=== PATIENT | female | born 1985 | race Caucasian/White ===

== ENCOUNTER 2020-01-28 12:47 | Outpatient (CLI) | payer OTHER, SELFPAY ==
--- NOTE | ~2020-01-28 | XR_ITS ---
XR lumbar spine min 4V DATE: 01/28/2020 14:59 INDICATION: Lumbar spinal fusion. Low back pain. TECHNIQUE: AP standing view. Flexion and extension and neutral standing lateral views. COMPARISON: None FINDINGS: There is slight dextroscoliosis of the lumbar spine. There is a transitional fifth lumbar vertebrae. There is severe degenerative disc disease at L4-5. The remaining lumbar interspaces are well preserve d. No fracture or bone destruction is evident. The lumbar pedicles are intact. No spondylolisthesis or i nstability on flexion or extension. The sacroiliac joints appear normal. IUD is noted overlying the mid pelvis. IMPRESSION: Slight dextroscoliosis of the lumbar spine Transitional fifth lumbar vertebra Moderately severe degenerative disc disease at L4-5 Reviewed, dictated and finalized at location A.
--- NOTE | ~2020-01-28 | MR_ITS ---
EXAMINATION: MR cervical spine wo con DATE: 01/28/2020 14:51 INDICATION: Cervical radiculopathy. TECHNIQUE: Magnetic resonance imaging (MRI) of the cervical spine was performed without intravenous c ontrast. Sequences included sagittal T2-weighted FSE, sagittal STIR FSE, sagittal T1-weighted FSE, ax ial MERGE, and axial T2-weighted FSE. COMPARISON: None FINDINGS: There is kyphosis of cervical spine. Vertebral body heights are normal. Intervertebral disc heights are normal. The spinal cord signal intensity is normal. The following disc levels are specif ically discussed: C2-C3: The disc does not extend beyond the endplate margin. There is no uncovertebral joint osteoarth ritis. There is mild bilateral facet joint osteoarthritis. There is no neural foraminal stenosis. The re is no central canal stenosis. C3-C4: There is a central protrusion. There is mild bilateral uncovertebral joint osteoarthritis. The re is mild bilateral facet joint osteoarthritis. There is mild left neural foraminal stenosis. There is mild central canal stenosis. C4-C5: The disc does not extend beyond the endplate margin. There is no uncovertebral joint osteoarth ritis. There is no facet joint osteoarthritis. There is no neural foraminal stenosis. There is no alix tral canal stenosis. C5-C6: The disc is bulging. There is moderate bilateral uncovertebral joint osteoarthritis. There is mild bilateral facet joint osteoarthritis. There is mild bilateral neural foraminal stenosis. There i s mild central canal stenosis with ventral indentation of spinal cord. C6-C7: There is a central extrusion. There is no uncovertebral joint osteoarthritis. There is no face t joint osteoarthritis. There is no neural foraminal stenosis. There is mild central canal stenosis. C7-T1: The disc does not extend beyond the endplate margin. There is mild left uncovertebral joint os teoarthritis. There is mild bilateral facet joint osteoarthritis. There is no neural foraminal stenos is. There is no central canal stenosis. IMPRESSION: 1. Mild cervical spondylosis. Reviewed, dictated and finalized at location A.
== END 2020-01-28 12:48 | disposition home or self-care (01) ==
LOC: ANHIMG 13:18
DX: M47.22 Other spondylosis with radiculopathy, cervical region (principal); Z98.1 Arthrodesis status; M51.36 Other intervertebral disc degeneration, lumbar region
CPT/HCPCS: 72110; 72141

== ENCOUNTER 2020-04-14 11:18 | Outpatient (CLI) | payer OTHER, SELFPAY ==
--- NOTE | ~2020-04-14 | MR_ITS ---
EXAMINATION: MR lumbar spine wo/w con DATE: 04/14/2020 12:52 INDICATION: Lumbar neuropathy. Low back pain. TECHNIQUE: Magnetic resonance imaging (MRI) of the lumbar spine was performed without and with 20 mL MultiHance intravenous contrast. Sequences included sagittal T2-weighted FSE, sagittal STIR FSE, and sagittal and axial T1-weighted FSE. Postcontrast sequences included axial T2-weighted FSE and axial a nd sagittal T1-weighted FS FSE. COMPARISON: Lumbar spine MRI 03/31/2019 FINDINGS: Bone alignment is normal. Vertebral body heights are normal. There is a hemangioma in L2 ve rtebral body. There is severely decreased disc height at L4-L5 and mildly decreased disc height at L5 -S1. The distal spinal cord signal intensity is normal. The conus medullaris is at L1. The following disc levels are specifically discussed: L1-L2: The disc does not extend beyond the endplate margin. There is mild bilateral facet joint osteo arthritis. There is no neural foraminal stenosis. There is no central canal stenosis. L2-L3: The disc does not extend beyond the endplate margin. There is mild bilateral facet joint osteo arthritis. There is no neural foraminal stenosis. There is no central canal stenosis. L3-L4: The disc does not extend beyond the endplate margin. There is mild bilateral facet joint osteo arthritis. There is no neural foraminal stenosis. There is no central canal stenosis. L4-L5: The disc is bulging with superimposed central extrusion. There is mild bilateral facet joint o steoarthritis. There is moderate bilateral neural foraminal stenosis. There is mild central canal shayne nosis with posterior decompression. L5-S1: There is an extrusion involving right subarticular and foraminal zones with mass effect on rig ht S1 nerve root. There is severe right and moderate left facet joint osteoarthritis. There is modera te right neural foraminal stenosis. There is mild central canal stenosis. IMPRESSION: 1. Severe lower lumbar spondylosis, stable from 03/31/2019. Reviewed, dictated and finalized at location B.
[2020-04-14 12:08] LABS: Estimated Glomerular Filt Rate > 60
== END 2020-04-14 11:19 | disposition home or self-care (01) ==
LOC: ANHIMG 11:31
DX: M47.816 Spondylosis without myelopathy or radiculopathy, lumbar region (principal)
CPT/HCPCS: 72158; A9577

== ENCOUNTER 2024-08-05 14:11 | Outpatient (CLI) | payer OTHER, SELFPAY ==
--- NOTE | ~2024-08-05 | XR_ITS ---
EXAMINATION: XR lumbar spine min 4V DATE: 08/05/2024 15:14 INDICATION: Low back pain. TECHNIQUE: 5 views of lumbar spine were obtained. COMPARISON: Lumbar spine radiograph 01/28/2020 FINDINGS: There is 13 degrees levoscoliosis of lumbar spine. Vertebral body heights are normal. There is severely decreased disc height at L4-L5 and mildly decreased disc height at L5-S1. There is multi level facet joint osteoarthritis, severe in lower lumbar spine. IMPRESSION: 1. Severe lower lumbar spondylosis. 2. Lumbar levoscoliosis. Reviewed, dictated and finalized at location A. ETRICS HEAD
--- NOTE | ~2024-08-05 | XR_ITS ---
EXAMINATION: XR tibia fibula RT 2V DATE: 08/05/2024 14:38 INDICATION: Lower leg pain. TECHNIQUE: 2 views of right tibia and fibula were obtained. COMPARISON: None. FINDINGS: Alignment is normal. No fracture. Joint spaces are normal. No knee joint effusion. IMPRESSION: 1. Normal right tibia and fibula. Reviewed, dictated and finalized at location A. DING WHEEL FACER
--- NOTE | ~2024-08-05 | XR_ITS ---
EXAMINATION: XR tibia fibula LT 2V DATE: 08/05/2024 14:38 INDICATION: Left lower leg pain. TECHNIQUE: 2 views of left tibia and fibula were obtained. COMPARISON: None. FINDINGS: Alignment is normal. No fracture. Joint spaces are normal. No knee joint effusion. IMPRESSION: 1. Normal left tibia and fibula. Reviewed, dictated and finalized at location A. ON OFFICER
== END 2024-08-05 14:12 | disposition home or self-care (01) ==
PROVIDERS: PCP Family Medicine; Visit Provider Family Medicine
DX: M79.605 Pain in left leg (principal); Z98.1 Arthrodesis status; Z98.890 Other specified postprocedural states; M47.896 Other spondylosis, lumbar region
CPT/HCPCS: 72110; 73590

== ENCOUNTER 2024-08-19 07:52 | Outpatient (CLI) | payer OTHER, SELFPAY ==
--- NOTE | ~2024-08-19 | US_ITS ---
EXAMINATION: US venous doppler [facility] DATE: 08/19/2024 08:37 INDICATION: Bilateral lower limb pain and swelling TECHNIQUE: Grayscale ultrasound images without and with compression and Doppler ultrasound images of the bilateral lower extremity veins were obtained. COMPARISON: None. FINDINGS: The visualized portions of right common femoral vein, profunda (deep) femoral vein, femoral vein, pop liteal vein, posterior tibial veins, peroneal veins, gastrocnemius vein and greater saphenous vein ou tflow are patent. The visualized portions of left common femoral vein, profunda femoral vein, femoral vein, popliteal v ein, posterior tibial veins, peroneal veins, gastrocnemius vein and greater saphenous vein outflow ar e patent. IMPRESSION: 1. No deep venous thrombosis in either lower limb. Reviewed, dictated and finalized at location B. 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
== END 2024-08-19 07:53 | disposition home or self-care (01) ==
PROVIDERS: PCP Family Medicine; Visit Provider Family Medicine
DX: M79.605 Pain in left leg (principal)
CPT/HCPCS: 93970

== ENCOUNTER 2024-09-05 18:42 | Emergency (ER) | payer OTHER, SELFPAY ==
[2024-09-05 18:52] VITALS: BP 142/93; PULSE 129; RESP 18; TEMP 37.1; O2SAT 100
--- NOTE | 2024-09-05 19:13 | ED_ITS ---
HPI - URI/Sore Throat General Chief Complaint: Upper Respiratory Infection Stated Complaint: flu like symptoms Time Seen by Provider: 09/05/24 18:46 Source: patient Mode of arrival: ambulatory Limitations: no limitations History of Present Illness HPI Narrative: Patient is a 38-year-old female presents with 3 days of body aches, headache, fever, chills. Also reports intermittent productive cough. Denies any con gestion, sore throat, ear pain, nausea, vomiting, diarrhea. Patient has taken 1 dose of Aleve Related Data Home Medications ?Medication ?Instructions ?Recorded ?Confirmed ?Last Taken ?Type lisinopril 10 mg tablet 10 mg PO DAILY 06/27/22 Unknown History Allergies Allergy/AdvReac Type Severity Reaction Status Date / Time No Known Allergies Allergy Verified 09/05/24 19:05 Review of Systems Review of Systems: All systems reviewed & are unremarkable except as noted in HPI and below Constitutional: Constitutional: Reports body ache(s), Reports chills, Denies fatigue, Reports fever(s), Reports headache(s), Denies malaise and Denies weakness Eyes: Eyes: Denies blurry vision, Denies itchy eyes and Denies loss of vision ENT: Denies otalgia, Denies headache(s), Denies nasal congestion, Denies sinus pain and Denies sore throat Cardiovascular: Cardiovascular: Denies chest pain, Denies irregular heart rhythm and Denies dyspnea Respiratory: Respiratory: Reports cough and Denies dyspnea Gastrointestinal: Gastrointestinal: Denies abdominal pain, Denies diarrhea, Denies nausea and Denies vomiting Musculoskeletal: Musculoskeletal: Denies back pain, Reports myalgias and Denies arthralgias Integumentary/Breasts: Skin/Breast: Denies pruritus and Denies rash Neurologic: Reports headache(s), Denies loss of vision and Denies weakness Psychiatric: Psychiatric: Reports no additional psychiatric complaints Endocrine: Endocrine: Denies fatigue Allergic/Immunologic: Allergic/Immunologic: Denies itchy eyes PMFSH Past Medical History Medical History Encounter for IUD removal Hypertension Migraines Depression Arthritis Anxiety Surgical History Surgical History H/O laminectomy S/P cervical disc replacement History of carpal tunnel surgery Family History Family History Mother Rheumatoid arthritis Other Hypertension Social History Social History Smoking status: Never smoker Alcohol intake: current Comments At time of signature, agree with nursing past medical, surgical, social and family history. There is no relevant family history pertinent to the presenting complaint. Exam Const: General: cooperative, healthy appearing, comfortable, no acute distress and well nourished Nutritional Appearance: well nourished Orienta tion/consciousness: patient oriented x3 Limitations: no limitations HENMT: Head: normal to inspection, normocephalic and atraumatic Ears: hearing grossly normal bilaterally, external ears normal, TM's normal bilaterally, EAC's normal and no periauricular adenopathy Face/Nose/Sinus: Normal external nose present, Abnormal mucous membranes and turbinates present erythematous bilateral and diffuse, normal facial exam, sinuses nontender and face symmetric Face and sinus: normal facial exam, sinuses nontender and face symmetric Mouth: Yes Normal oral and palatal mucosa present, Yes lip normal, Yes tongue normal, Yes Normal salivary glands and ducts present, Yes oropharynx normal and Yes moist mucous membranes Teeth and gingiva: dentition normal Throat: posterior oropharynx normal, tonsils normal and uvula midline Eyes: General: appearance normal, both eyes and all related structures Alignment and Position: alignment normal and position normal Periorbital: periorbital findings normal Eyelids: eyelids normal Pupils: Equal, round and reactive pupils present Neck: Neck: normal visual inspection, full ROM, no lymphadenopathy and supple Chest: Chest palpation & inspection: normal inspection of the chest and normal palpation of entire chest wall Resp: Effort & Inspection: normal respiratory effort and able to speak in complete sentences Auscultation: clear to auscultation bilaterally, no crackles, no rales, no rhonchi and no wheezes Cardio: Rate: tachycardic Rhythm: regular rhythm Heart sounds: S1 normal heart sound present and S2 normal heart sound present GI: Inspection: normal to inspection Skin: General skin exam: normal color and no rashes or lesions noted Neuro: General: patient oriented x3 and moves all extremities Cranial nerves: Yes Equal, round and reactive pupils present Speech: normal speech Gait exam (Neuro): Normal gait present Extrem: General: normal to inspection, full ROM and no edema Psych: Appearance: grossly normal and well kempt Mental Status: mental status grossly normal Speech and movement: Normal speech and movement present Affect: normal affect Attitude: cooperative Thought process: Normal thought process present Course Course Emergency Course: Discharge instructions reviewed with patient, as well as provided in writing per nursing staff. The instructions also include specific and strict return/GO TO THE ER as well as f/u information. All questions have been answered, and the patient deny any further questions with discharge and discharge plan. Portions of this record may have been created with voice recognition software Level of Care: Express Care Visit Vital Signs Vital signs: Vital Signs Temperature 37.1 C 09/05/24 18:52 Pulse Rate 129 H 09/05/24 18:52 Respiratory Rate 18 09/05/24 18:52 Blood Pressure 142/93 H 09/05/24 18:52 Pulse Oximetry 100 09/05/24 18:52 Oxygen Delivery Room Air 09/05/24 18:52 Temperature 37.1 C 09/05/24 18:52 Pulse Rate 129 H 09/05/24 18:52 Respiratory Rate 18 09/05/24 18:52 Blood Pressure 142/93 H 09/05/24 18:52 Pulse Oximetry 100 09/05/24 18:52 Oxygen Delivery Room Air 09/05/24 18:52 Repeat HR is 110 Reviewed MDM - URI/Sore Throat MDM Narrative Medical decision making narrative: Pt well hydrated appearing, in no respiratory distress, hemodynamically stable. Recommend supportive care. The patient is stable at time of discharge the clinical impression was discussed and the patient was given the opportunity to ask questions, which were addressed as completely as possible given the information available at present. Anticipatory guidance and return to care precautions were discussed and the importance of primary care follow-up was stressed and encouraged. The patient voiced understanding of the plan, indications to return, and the need for follow-up. Differential diagnosis considered: Huber virus, strep pharyngitis, allergic rhinitis, upper respiratory tract infection, sinusitis, rhinosinusitis, nasopharyngitis. viral pharyngitis, otitis media, otitis externa, otitis effusion, foreign body, cerumen impaction, viral syndrome, and influenza.? Exam findings show no acute concerns or changes; patient is non-toxic appearing and is in no distress.? Patient is appropriate for outpatient treatment and follow- up.? Medical Records Attestation: I reviewed the patient's medical records. Lab Data Attestation: I reviewed the patient's lab results. Labs: Lab Results 09/05/24 09/05/24 Range/Units 19:24 19:25 POC Influenza A Ag Positive (Negative) POC Influenza B Ag Negative (Negative) POC SARS CoV-2 Ag Negative (Negative) Discharge Plan Discharge Clinical Impression: Influenza Patient Disposition: Home, Self-Care Condition: Stable Instructions: Influenza (ED) Additional Instructions: Were positive for influenza A. Your Covid is negative Your symptoms are likely due to a viral illness, which is not treated with antibiotics. Viral symptoms can be present for up to a few weeks. -For fever/pain, you may take: Tylenol 650-1000mg by mouth every 4-6 hours. Do not exceed 4000mg in 24 hours. Advil (Ibuprofen) 600 mg by mouth every 6 hours. Do not exceed 2400mg in 24 hours. 8 AM: Tylenol 11 AM: Ibuprofen 2 PM: Tylenol 5 PM: Ibuprofen 8 PM: Tylenol 11 PM: Ibuprofen 2 AM: Tylenol 5 AM: Ibuprofen -Antihistamine medication such as Benadryl/Zyrtec at night and Claritin/Abigail during the day can help improve symptoms. -Use Flonase twice a day for 5 days then daily to help reduce the inflammation and dry up your sinuses. -You can also use Sudafed behind the pharmacy counter(12 or 24 hour). Be sure to drink plenty of water with these medications at least 8 ounces with every dose and it is important to drink 8 to 10 glasses of water per day. Water is a natural decongestant -Eat and drink things that are easy to swallow, like tea or soup, or popsicles. -Oral rinses such as: Salt water gargles and/or may use topical anesthetic (eg. Chloraseptic spray) or lozenges to relieve dryness or throat pain). -Frequent hand washing or hand glass sagger is one of the best ways to prevent spread of infection. -Using a vaporizer or humidifier at night will also help thin secretions and help with coughing up phlegm. -Follow up with primary care provider in 3-5 days if condition is not improving - For new or worsening symptoms go directly to the nearest ER Your blood pressure was elevated above 120/80 today at Urgent Care. This puts you above the threshold for follow up visit with a primary care provider. High blood pressure does not usually cause any symptoms, however it may lead to kidney failure, stroke, heart disease just to name a few if untreated . Many people are anxious when seeing a provider or nurse. As a result, you are not diagnosed with hypertension at this time unless your blood pressure is persistently high at two office visits at least one week apart. Some things that can help lower blood pressure are lifestyle modifications, such as light exercise, decreased salt in diet, and weight loss. It is important to follow up with a PCP about this within 1 week. Patient Language: Sierra Leonean Prescriptions: No Action lisinopril 10 mg tablet 10 mg PO DAILY Follow-up/Referrals: Mirlande,Hilda Mcdonough, SOLDER CREAM MAKER [Primary Care Provider] - 3 Days Time of Disposition: 19:26
[2024-09-05 19:25] LABS: EDINFLUASCREEN Positive (Negative); EDINFLUBSCREEN Negative (Negative)
[2024-09-05 19:26] LABS: EDCOVIDSCREEN Negative (Negative)
[2024-09-05 19:30] VITALS: PULSE 110; O2SAT 98
--- OUTSIDE RECORDS SUMMARY | 2024-09-09 10:52 | XMS_ITS | Clinical Summary ---
Author Organization [facility] Address [address] [place] [address] Care Team Providers Care Automotive Sales Manager Name Role Phone Pb [place] Primary Care Provider [phone] Source Comments [facility],non-owned Affiliates and Associated Physician Practices is amultiple site organization consisting of ambulatory clinics and hospital sitesin [place], [place], [place] and [place]. This disclosure is being madepursuant to the Care Everywhere program and may not contain all information available regarding this patient. Last updated 18.[facility] Allergies No known active allergies Medications * Be aware that medications may not be up to date on this document. Alwaysverify current medications with the patient. Medication Sig Dispensed Refills Start Date End Date Status multivitamin daily tablet Take 1 tablet by mouth daily with food Active ibuprofen (MOTRIN) 800 MG tablet Take 1 tablet by mouth every 6 hours as needed for Pain 90 tablet 3 07/12/2020 Active Additional Information Patient not taking.Reported on 02/14/2021 lactobacillus extra strength (FLORAJEN) capsule Take 1 capsule by mouth 3 times daily Active vitamin D, cholecalciferol, 50 MCG (2000 UT) tablet Take 2,000 Units by mouth once daily Active traMADol (ULTRAM) 50 MG tablet Take 1 (one) tablet by mouth every 6 hours as needed for Pain 12 tablet 11/13/2020 Active triamcinolone acetonide (KENALOG) injection Kenalog 10 mg/mL suspension for injection In office injection administered by the provider Active predniSONE (DELTASONE) 10 MG tablet 11/20/2020 Active Active Problems Problem Noted Date Diagnosed Date Left carpal tunnel syndrome 11/29/2020 Herniated lumbar intervertebral disc 04/29/2017 Lumbar radiculopathy Bilateral carpal tunnel syndrome Family History Medical History Relation Name Comments Cancer - Skin, Melanoma Neg Hx Cancer - Skin, Non Melanoma Neg Hx Social History Tobacco Use Types Packs/Day Years Used Date Smoking Tobacco: Former Cigarettes 1 14 2 - 2017 Smokeless Tobacco: Former Tobacco Cessation:Counseling Given: No Comments:e-cig in the past Alcohol Use Standard Drinks/Week Comments Not Currently 0 (1 standard drink = 0.6 oz pur e alcohol) seldom Sex and Gender Information Value Date Recorded Sex Assigned at Not on file Gender Identity Not on file Sexual Orientation Not on file Last Filed Vital Signs Vital Sign Reading Time Taken Comments Blood Pressure 164/99 02/02/2021 11:30 AM CDT Pulse 93 02/14/2021 2:54 PM CDT Temperature 36.6 ??C (97.8 ??F) 02/14/2021 2:54 PM CD T Respiratory Rate 21 02/02/2021 9:05 AM CDT Oxygen Saturation 98% 02/14/2021 2:54 PM CDT Inhaled Oxygen Concentration 21% 05/26/2019 8 :00 AM CDT Weight 105.7 kg (233 lb) 02/14/2021 2:54 PM CDT Height 172.7 cm (5' 8 ) 02/14/2021 2:54 PM CDT Body Mass Index 35.43 02/14/2021 2:54 PM CDT Plan of Treatment Upcoming Encounters Date Type Department Care Team (Late st Contact Info) Description 09/16/2024 10:00 AM SUSPENDER CUTTER Office Visit [facility] - Neurosurgery [address] [place] [address], [place] [address] Zena Russo MD [address] [place] [address] [place] [address] Health Maintenance Due Date Last Done Comments PAP SMEAR 1986 HIV SCREENING 2001 HEPATITIS C SCREENING 11/16/2004 DTAP/TDAP/TD VACCINES (1 - Tdap) 2005 HEPATITIS B VACCINE (1 of 3 - 19+ 3-dose series) 2005 COVID-19 VACCINE (2023-2 5 season) 2024 INFLUENZA VACCINE (#1) 2024 DEPRESSION SCREENING 08/18/2024 ZOSTER VACCINE (1 of 2) 2036 HIB VACCINE Aged Out No longer eligi ble based on patient's age to complete this topic HPV VACCINE Aged Out No longer eligi ble based on patient's age to complete this topic MENINGOCOCCAL (Group B) VACCINE Aged Out No longer eligible based on patient's age to complete this topic MENINGOCOCCAL VACCINE Aged Out No kesha thomas eligible based on patient's age to complete this topic PNEUMOCOCCAL VACCINE Aged Out No long er eligible based on patient's age to complete this topic Medical Devices Implanted Type Area Cost Reduction Engineer Device Identifier Shelf Expiration Date Model / Serial / Lot M6 Artificial Cervical Disc, 6 Medium Long Implanted:Qty: 1 on 06/07/2020 by Zena Russo MD at [facility] Spine Cervical [employer] 03/10/2024 [facility]-[id number] / [id number] / [id number] Care Teams Automotive Sales Manager Relationship Specialty Start Date End Date Corbin Ambriz [address] RICHI KOEHLER [id number] PCP - General 08/09/24
--- OUTSIDE RECORDS SUMMARY | 2024-09-09 10:52 | XMS_ITS | Patient Health Summary ---
Author Organization [facility] Address [address] [place] [address] Care Team Providers Care Social Worker Psychiatric Name Role Phone Pb [place] Primary Care Provider [phone] Note from [facility],non-owned Affiliates and Associated Physician Practices is amultiple site organization consisting of ambulatory clinics and hospital sitesin [place], [place], [place] and [place]. This disclosure is being madepursuant to the Care Everywhere program and may not contain all information available regarding this patient. Last updated 18.[facility] Allergies No known active allergies Medications * Be aware that medications may not be up to date on this document. Alwaysverify current medications with the patient. * multivitamin daily tablet Take 1 tablet by mouth daily with food * ibuprofen (MOTRIN) 800 MG tablet(Started 07/12/2020) Take 1 tablet by mouth every 6 hours as needed for Pain 3 refills by 07/12/2021 * lactobacillus extra strength (FLORAJEN) capsule Take 1 capsule by mouth 3 times daily * vitamin D, cholecalciferol, 50 MCG (2000 UT) tablet Take 2,000 Units by mouth once daily * traMADol (ULTRAM) 50 MG tablet(Started 11/13/2020) Take 1 (one) tablet by mouth every 6 hours as needed for Pain * triamcinolone acetonide (KENALOG) injection Kenalog 10 mg/mL suspension for injection In office injection administered by the provider * predniSONE (DELTASONE) 10 MG tablet(Started 11/20/2020) Active Problems Problem Noted Date Diagnosed Date Left carpal tunnel syndrome 11/29/2020 Herniated lumbar intervertebral disc 04/29/2017 Lumbar radiculopathy Bilateral carpal tunnel syndrome Social History Tobacco Use Types Packs/Day Years Used Date Smoking Tobacco: Former Cigarettes 1 14 2 2017 Smokeless Tobacco: Former Tobacco Cessation:Counseling Given: [...] Mass Index 35.43 02/14/2021 2:54 PM CDT Medical Devices Implanted Type Area Cargo Mate Device Identifier Shelf Expiration Date Model / Serial / Lot M6 Artificial Cervical Disc, 6 Medium Long Implanted:Qty: 1 on 06/07/2020 by Zena Russo MD at [facility] Spine Cervical [employer] 03/10/2024 [facility]-[id number] / [id number] / [id number] Procedures * KS REVISE MEDIAN N/CARPAL TUNNEL SURG(Performed 02/02/2021) Performed for Left carpal tunnel syndrome * HCG URINE QUALITATIVE - POCT (IP) INTERFACED(Performed 02/02/2021) * HCG URINE QUAL POCT NOTIFICATION(Performed 02/02/2021) Performed for Bilateral carpal tunnel syndrome, Left carpal tunnel syndrome * CARDIAC EKG ORDER(Performed 11/14/2020) * KS REVISE MEDIAN N/CARPAL TUNNEL SURG(Performed 11/13/2020) Performed for Right carpal tunnel syndrome * HCG URINE QUALITATIVE - POCT (IP) INTERFACED(Performed 11/13/2020) * HCG URINE QUAL POCT NOTIFICATION(Performed 11/13/2020) Performed for Preop examination * PT-INR [facility](Performed 11/02/2020) Performed for Pre-op testing * PTT [facility](Performed 11/02/2020) Performed for Pre-op testing * CBC W AUTO DIFFERENTIAL(Performed 11/02/2020) Performed for Pre-op testing * BASIC METABOLIC PANEL (CALCIUM TOTAL)(Performed 11/02/2020) Performed for Pre-op testing * EKG 12-LEAD(Performed 11/02/2020) Performed for Pre-op testing * XR CERVICAL SPINE 4 OR 5VW(Performed 06/07/2020) Performed for Herniated lumbar intervertebral disc * FL REG SURGERY(Performed 06/07/2020) Performed for Cervical radiculopathy * DISCECTOMY WITH FUSION ANTERIOR CERVICAL (ACDF)(Performed 06/07/2020) Performed for Cervical radiculopathy * PERIPHERAL IV NOTE(Performed 06/07/2020) * ENDOTRACHEAL TUBE NOTE(Performed 06/07/2020) * TYPE + SCREEN PANEL(Performed 06/07/2020) Performed for Preop examination * HCG URINE QUALITATIVE - POCT (IP) [facility](Performed 06/07/2020) * TYPE + SCREEN PANEL(Performed 06/02/2020) Performed for Preop examination * PT-INR [facility](Performed 06/02/2020) Performed for Pre-op testing * PTT [facility](Performed 06/02/2020) Performed for Pre-op testing * COMPREHENSIVE METABOLIC PANEL(Performed 06/02/2020) Performed for Pre-op testing * CBC W AUTO DIFFERENTIAL(Performed 06/02/2020) Performed for Pre-op testing * SARS-COV-2 (COVID-19) IN HOUSE(Performed 06/02/2020) Performed for Pre-op testing * XR CHEST 2VW(Performed 06/02/2020) Performed for Pre-op testing * EKG 12-LEAD(Performed 06/02/2020) Performed for Pre-op testing * IR CLARIBEL LUMBAR DIRECT APPROACH(Performed 05/12/2020) Performed for Lumbar radiculopathy * HCG URINE QUALITATIVE - POCT (IP) [facility](Performed 05/12/2020) * XR CERVICAL SPINE 4 OR 5VW(Performed 04/20/2020) Performed for Cervical radiculopathy * CARDIAC EKG ORDER(Performed 07/18/2019) * CARDIAC EKG ORDER(Performed 05/28/2019) * FL REG SURGERY(Performed 05/26/2019) Performed for Other intervertebral disc displacement, lumbar region * ENDOTRACHEAL TUBE NOTE(Performed 05/26/2019) * LAMINECTOMY LUMBAR MICROSCOPIC/MINIMALLLY INVASIVE(Performed 05/26/2019) Performed for Lumbar radiculopathy * HCG URINE QUALITATIVE - POINT OF CARE(Performed 05/26/2019) Performed for Preop examination * EKG 12-LEAD(Performed 05/17/2019) Performed for Preop examination * PT-INR(Performed 05/12/2019) * CBC W AUTO DIFFERENTIAL(Performed 05/12/2019) * PTT(Performed 05/12/2019) * BASIC METABOLIC PANEL (CALCIUM TOTAL)(Performed 05/12/2019) * IMAGING/RADIOLOGY/XRAY RESULTS ORDER(Performed 04/06/2019) * SKIN TEST PPD - POINT OF CARE(Performed 07/08/2018) Performed for PPD screening test * IR NERVE BLOCK L OR S UNILAT(Performed 06/04/2018) Performed for Lumbar radiculopathy, Radiculopathy of lumbar region * IMAGING/RADIOLOGY/XRAY RESULTS ORDER(Performed 01/22/2018) * FL REG SURGERY(Performed 04/29/2017) * TYPE + SCREEN PANEL(Performed 04/29/2017) * HCG URINE QUALITATIVE - POCT (IP) [facility](Performed 04/29/2017) * PTT [facility](Performed 04/10/2017) * BASIC METABOLIC PANEL (CALCIUM TOTAL)(Performed 04/10/2017) * PT-INR [facility](Performed 04/10/2017) * CBC W AUTO DIFFERENTIAL(Performed 04/10/2017) * XR LUMBAR SPINE 4VW OR MORE(Performed 03/03/2017) * CULTURE URINE(Performed 05/17/2014) * CULTURE AEROBIC + GRAM STAIN(Performed 05/07/2014) * CULTURE AEROBIC(Performed 05/07/2014) * GRAM STAIN SMEAR(Performed 05/07/2014) * CULTURE URINE(Performed 04/07/2014) Results * HCG URINE QUALITATIVE - POCT (IP) INTERFACED (02/02/2021 7:44 AM CDT) Only the most recent of2 resultswithin the time period is included. HCG Qual Urine Negative Negative 02/02/2021 7:56 AM CDT [facility] Urine URINE / Unknown 02/02/2021 7 :44 AM CDT 02/02/2021 7:56 AM CDT Dano Dobson MD LAB - POINT OF CARE ORDERABLES Performing Organization Address City/[facility]/ZIP Co de Phone Number [address] [address], [facility] [phone] * HCG URINE QUAL POCT NOTIFICATION (02/02/2021 7:42 AM CDT) Only the most recent of2 resultswithin the time period is included. Pathologist [facility] Comment Notification Label Only - See Separate Report 02/02/2021 9:02 AM CDT [facility] Urine URINE / Unknown 02/02/2021 7 :42 AM CDT 02/02/2021 7:42 AM CDT Dano Dobson MD LAB - URINALYSIS ORD ERABLES Performing Organization Address City/[facility]/ZIP Co de Phone Number [address] [address], [facility] [phone] * CARDIAC EKG ORDER (11/14/2020 8:16 AM CDT) Only the most recent of3 resultswithin the time period is included. Narrative 11/14/2020 8:16 AM CDT Ordered by an unspecified provider. Scanned Document CARDIAC SERVICES ORD ERABLES * PTT [facility] (11/02/2020 12:02 PM CDT) Only the most recent of3 resultswithin the time period is included. APTT 29.6 23.0 - 38.4 Seconds 11/02/2020 1:15 PM CDT [facility] Comment:Suggested therapeuti c range for full dose I.V. unfractionated heparin therapy for venous thromboembolism is 71 to 109 seconds. Blood BLOOD SPECIMEN / Unknown Lab Venipuncture / Unknown 11/02/2020 12:02 PM CDT 11/02/2020 1:05 PM CDT Dano Dobson MD LAB - COAGULATION OR DERABLES [facility] [address] [place] [address], [facility] [phone] * PT-INR [facility] (11/02/2020 12:02 PM CDT) Only the most recent of3 resultswithin the time period is included. PT 12.1 12.1 - 14.8 Seconds 11/02/2020 1:15 PM CDT [facility] LABORAT[facility] INR 0.9 See Comment 11/02/2020 1:15 PM CDT [facility] Comment:The suggested therap eutic range for standard coumadin (warfarin) therapy is an INR of 2.0-3.0. For high-risk patients (Mechanical Mitral Valve Prosthesis, etc.), the suggested prophylactic therapeutic range is an INR of 2.5-3.5. Blood BLOOD SPECIMEN / Unknown Lab Venipuncture / Unknown 11/02/2020 12:02 PM CDT 11/02/2020 1:05 PM CDT Dano Dobson MD LAB - COAGULATION OR DERABLES Performing Organization Address City/[facility]/ZIP Co de Phone Number [facility] [address] [place] [address], [facility] [phone] * (ABNORMAL) CBC WITH DIFFERENTIAL (11/02/2020 12:02 PM CDT) Only the most recent of4 resultswithin the time period is included. WBC 6.9 3.5 - 10.5 10? 3 /uL 11/02/2020 1:00 PM CDT [facility] RBC 5.02(H) 3.90 - 5.00 10? 6 /uL 11/02/2020 1:00 PM CDT [facility] Hemoglobin 15.0 12.0 - 15.5 g/dL 11/02/2020 1:00 PM CDT [facility] Hematocrit 44.0 35.0 - 45.0 % 11/02/2020 1:00 PM [facility] MCV 87.6 81.0 - 97.0 fL 11/02/2020 1:00 PM [facility] MCH 29.9 28.0 - 34.0 pg 11/02/2020 1:00 PM [facility] MCHC 34.1 32.0 - 36.0 g/dL 11/02/2020 1:00 PM [facility] Platelet Count 289 150 - 400 10? 3 /uL 11/02/2020 1:00 PM [facility] RDW-SD 38.2 36.0 - 50.0 fL 11/02/2020 1:00 PM [facility] RDW-CV 11.9 11.2 - 14.8 % 11/02/2020 1:00 PM [facility] MPV 11.3 9.3 - 12.8 fL 11/02/2020 1:00 PM [facility] nRBC Absolute 0.00 0 10? 3 /uL 11/02/2020 1:00 PM [facility] nRBC Auto 0.0 0 /100 WBC 11/02/2020 1:00 PM [facility] Neutrophils % 65.9 35.0 - 70.0 % 11/02/2020 1:00 PM [facility] Lymphocytes % 25.8 19.7 - 55.1 % 11/02/2020 1:00 PM [facility] Monocytes % 6.4 3.0 - 15.0 % 11/02/2020 1:00 PM [facility] Eosinophils % 1.2 0.0 - 6.0 % 11/02/2020 1:00 PM [facility] Basophil % 0.4 0.0 - 1.5 % 11/02/2020 1:00 PM [facility] Neutrophils Absolute 4.5 1.6 - 7.0 10? 3 /uL 11/02/2020 1:00 PM [facility] Lymphocyte Absolute 1.8 0.8 - 2.9 10? 3 /uL 11/02/2020 1:00 PM [facility] Monocytes Absolute 0.44 0.14 - 0.66 10? 3 /uL 11/02/2020 1:00 PM [facility] Eosinophils Absolute 0.08 0.00 - 0.45 10? 3 /uL 11/02/2020 1:00 PM [facility] Basophils Absolute 0.03 0.00 - 0.06 10? 3 /uL 11/02/2020 1:00 PM [facility] Immature Granulocytes % 0.3 0.0 - 1.0 % 11/02/2020 1:00 PM [facility] Blood BLOOD SPECIMEN / Unknown Lab Venipuncture / Unknown 11/02/2020 12:02 PM CDT 11/02/2020 12:52 PM CDT Dano Dobson MD LAB - HEMATOLOGY ORD ERABLES [facility] [address] [place] [address], [facility] [phone] * BASIC METABOLIC PANEL (CALCIUM TOTAL) (11/02/2020 12:02 PM CDT) Only the most recent of3 resultswithin the time period is included. BUN 14 7 - 26 mg/dL 11/02/2020 1:23 PM [facility] Creatinine 0.8 0.6 - 1.2 mg/dL 11/02/2020 1:23 PM [facility] Sodium 141 136 - 145 mmol/L 11/02/2020 1:23 PM [facility] Potassium 3.9 3.5 - 4.5 mmol/L 11/02/2020 1:23 PM [facility] Chloride 105 98 - 107 mmol/L 11/02/2020 1:23 PM [facility] CO2 26 22 - 29 mmol/L 11/02/2020 1:23 PM [facility] Glucose 95 70 - 115 mg/dL 11/02/2020 1:23 PM [facility] Calcium 9.1 8.4 - 10.2 mg/dL 11/02/2020 1:23 PM [facility] Anion Gap 14 8 - 18 11/02/2020 1:23 PM CDT [facility] BUN/Creatinine Ratio 18 7 - 23 11/02/2020 1:23 PM CDT [facility] Osmolality Calculated 292 270 - 300 mOsm/kg 11/02/2020 1:23 PM CDT [facility] eGFR >60 >60 mL/min/1.7 3 m2 11/02/2020 1:23 PM CDT [facility] Blood BLOOD SPECIMEN / Unknown Lab Venipuncture / Unknown 11/02/2020 12:02 PM CDT 11/02/2020 12:52 PM CDT Dano Dobson MD LAB - CHEMISTRY ORDLizet LYNN [facility] [address] [place] [address], [facility] [phone] * EKG 12-LEAD (11/02/2020 10:08 AM CDT) Only the most recent of3 resultswithin the time period is included. Ventricular Rate 88 BPM SL MUSE Atrial Rate 88 BPM [facility] MUSE P-R Interval 200 ms [facility] MUSE QRS Duration ms 90 ms [facility] MUSE Q-T Interval ms 400 ms [facility] MUSE QTC Calculation (Bezet) 484 ms [facility] MUSE Calculated P [place] 49 degrees [facility] MUSE Calculated R [place] 0 degrees [facility] MUSE Calculated T [place] 50 degrees SL MUSE Interpretation EKG NORMAL SINUS RHYTHM POSSIBLE LEFT ATRIAL ENLARGEMENT LEFT VENTRICULAR HYPERTROPHY CANNOT RULE OUT SEPTAL INFARCT , AGE UNDETERMINED ABNORMAL ECG WHEN COMPARED WITH ECG OF 02-JUN-2020 10:46, NO SIGNIFICANT CHANGE WAS FOUND Confirmed by Jerald Ennis ([id number]) on 11/05/2020 10:16:27 PM [facility] MUSE 11/02/2020 10:0 8 AM CDT 11/05/2020 10:16 PM CDT Dano Dobson MD ECG ORDERABLES [facility] MUSE * XR CERVICAL SPINE 4 OR 5VW (06/07/2020 1:48 PM CDT) Only the most recent of2 resultswithin the time period is included. Anatomical Region Laterality Modality Spine Radiographic Claribel ging 06/07/2020 4:44 PM CDT Impressions 06/07/2020 4:46 PM CDT IMPRESSION: Intervertebral disc arthroplasty at C5-6. This report was electronically signed by TREVON BELL MD ??on 06/07/2020 4:46 PM . Narrative 06/07/2020 4:46 PM CDT Exam: ??XR CERVICAL SPINE 5 view History: ??M51.26: Herniated lumbar intervertebral disc Comparison: 04/20/2020 Findings: Since the prior study there has been intervertebral disc arthroplasty at the C5-6 level. C6 and C7 are obscured on the lateral view due to the shoulders and remain obscured on the swimmer view. No fracture or subluxation is seen. Procedure Note Trevon Bell MD - 06/07/2020 Exam: XR CERVICAL SPINE 5 view History: M51.26: Herniated lumbar intervertebral disc Comparison: 04/20/2020 Findings: Since the prior study there has been intervertebral disc arthroplasty at the C5-6 level. C6 and C7 are obscured on the lateral view due to the shoulders and remain obscured on the swimmer view. No fracture or subluxation is seen. IMPRESSION: Intervertebral disc arthroplasty at C5-6. This report was electronically signed by TREVON BELL MD on 06/07/2020 4:46 PM . Khanh Waldron MD DIAGNOSTIC IMAGI NG ORDERABLES * FL REG SURGERY (06/07/2020 12:56 PM CDT) Only the most recent of3 resultswithin the time period is included. Narrative [facility] RADIOLOGY - 06/07/2020 12:56 PM CDT Fluoroscopy was used for this exam in the OR. Please see the Operative report. Zena Russo MD FLUOROSCOPY ORDERABL ES [facility] RADIOLOGY * IV PLACEMENT PERFORMABLE (06/07/2020 9:55 AM CDT) Narrative Roddy Carrillo DO - 06/07/2020 9:55 AM CDT MlRoddy packer DO ? 06/07/2020 ??9:55 AM Peripheral IV Line Placement: Patient Location: ??OR Procedure: IV start ([id number]). Procedure Section: ?? Skin Prep: alcohol. Orientation: right Location: hand Local Anesthetic Used? ??No Catheter Gauge: 18 Number of Attempts: 1. Procedure Tolerance: performed while patient under general anesthesia. Procedure Start Time: 06/07/2020 9:32 AM. Staff Section ?? Anesthesia Provider: Roddy Carrillo DO, Performed the procedure Araceli Mares MD GENERAL ANESTHESIA O BENNETT * ETT LINE PERFORMABLE (06/07/2020 9:54 AM CDT) Narrative Roddy Carrillo DO - 06/07/2020 9:54 AM CDT Roddy Carrillo DO ? 06/07/2020 ??9:55 AM Endotracheal Tube Placement: ? Patient Location: OR. Intubation Event Date/Time: ??06/07/2020 9:28 AM Procedure: intubation ([id number]). Procedure Section: ?? Sedation: IV sedation. Indications for Airway Management: ??airway protection Induction: standard IV Mask Ventilation: easy. Blade Type: Video Blade Size: 3 Laryngoscopy View: grade 1 (full cords) Intubation Adjuncts: stylet and video laryngoscope (for cervical stenosis) Tube: endotracheal tube Placement: oral Tube type: cuff - inflated Tube Size (MM): 7 Measured From: gums Cuff Inflated With: air Number of Attempts: 1. Placement Verified By: direct visualization, bilateral breath sounds, chest auscultation and CO2 monitor Tube secured with: ??adhesive tape. Difficult Airway? ??No. Procedure Start Time: 06/07/2020 9:28 AM. Staff Section ?? Anesthesia Provider: Roddy Carrillo DO Provider #1: Araceli Mares MD, Performed the procedure. Araceli Mares MD GENERAL ANESTHESIA O RDERABLES * TYPE + SCREEN PANEL (06/07/2020 7:45 AM CDT) Only the most recent of3 resultswithin the time period is included. Antibody Screen NEG 0 8:39 AM CDT [facility] BLOOD BANK LAB ABO Rh A POS 06/07/2020 8:39 AM CDT [facility] Blood Bank BLOOD SPECIMEN / Unknown 06/07/2020 7:45 AM CDT 06/07/2020 7:54 AM CDT Gonzalez Coates MD LAB - BLOOD BANK OR DERABLES Performing Organization Address City/[facility]/ZIP Co de Phone Number [facility]OD [facility] [address] [place] [address], [facility] [phone] * HCG URINE QUALITATIVE - POCT (IP) [facility] (06/07/2020 7:38 AM CDT) Only the most recent of3 resultswithin the time period is included. Test Urine Negative Negative [facility] POCT TESTING Urine URINE / Unknown 06/07/2020 7 :38 AM CDT Zena Russo MD LAB - POINT OF CARE ORDERABLES Performing Organization Address City/[facility]/ZIP Co de Phone Number [facility] POCT TESTING [address] [place] [address], [place] [phone] * COMPREHENSIVE METABOLIC PANEL (06/02/2020 11:50 AM CDT) BUN 12 7 - 26 mg/dL 06/02/2020 12:39 PM [facility] Creatinine 0.8 0.6 - 1.2 mg/dL 06/02/2020 12:39 PM [facility] Sodium 139 136 - 145 mmol/L 06/02/2020 12:39 PM [facility] Potassium 3.8 3.5 - 4.5 mmol/L 06/02/2020 12:39 PM [facility] Chloride 103 98 - 107 mmol/L 06/02/2020 12:39 PM [facility] CO2 27 22 - 29 mmol/L 06/02/2020 12:39 PM [facility] Glucose 93 70 - 115 mg/dL 06/02/2020 12:39 PM [facility] Calcium 9.1 8.4 - 10.2 mg/dL 06/02/2020 12:39 PM [facility] Protein Total 7.3 6.0 - 8.3 g/dL 06/02/2020 12:39 PM [facility] Albumin 3.8 3.4 - 5.0 g/dL 06/02/2020 12:39 PM [facility] Bilirubin Total 0.8 0.2 - 1.2 mg/dL 06/02/2020 12:39 PM [facility] Alkaline Phosphatase 87 40 - 150 Units/L 06/02/2020 12:39 PM [facility] ALT 29 0 - 55 Units/L 06/02/2020 12:39 PM [facility] AST 26 5 - 34 Units/L 06/02/2020 12:39 PM [facility] Anion Gap 13 8 - 18 06/02/2020 12:39 PM [facility] BUN/Creatinine Ratio 15 7 - 23 06/02/2020 12:39 PM [facility] Osmolality Calculated 287 270 - 300 mOsm/kg 06/02/2020 12:39 PM [facility] Albumin/Globulin Ratio 1.1 1.1 - 2.3 06/02/2020 12:39 PM [facility] eGFR >60 >60 mL/min/1.7 3 m2 06/02/2020 12:39 PM [facility] Blood BLOOD SPECIMEN / Unknown Lab Venipuncture / Unknown 06/02/2020 11:50 AM CDT 06/02/2020 12:07 PM CDT Zena Russo MD LAB - CHEMISTRY ARISTEO LYNN [facility] Organization Address City/State/[facility] Co de Phone Number [facility] [address] [place] [phone] [phone] * SARS-COV-2 (COVID-19) IN HOUSE (06/02/2020 11:18 AM CDT) COVID-19 PCR Not detected Not detected 06/03/2020 6:09 AM CDT [facility] Microbiology SPECIMEN FROM NASOPHARYNGEAL STRUCTURE / Unknown Collection / Unknown 06/02/2020 11:18 AM CDT 06/02/2020 11:19 AM CDT Narrative [facility] - 06/03/2020 6:09 AM CDT This Real Time RT-PCR assay was developed and its performance characteristics determined by [facility]. This test has been authorized by the Food and Drug administration (FDA)under an Emergency Use Authorization (EUA). This test has been validated in accordance with the FDA's guidance document Policy for Diagnostic Testing in Laboratories Certified to perform High Complexity Testing under CLIA prior to Emergency Use Authorization for Coronavirus Disease-2019 during the Public Health Emergency issued on October 16, 2019. FDA independent review of this validation is pending. This test is only authorized for the duration of time the declaration that circumstances exist justifying the authorization of emergency use of in vitro diagnostic tests for detection of SARS-CoV-2 virus and/or diagnosis of COVID-19 infection under section 564(b)(1) of the Act, 21 U.S.C 360bbb-3 (b)(1), unless the authorization is terminated or revoked sooner. Fact Sheets for this EUA assay are available upon request. Zena Russo MD LAB - MICROBIOLOGY O RDERABLES [facility] [address] [place] [address], [facility] [phone] * XR CHEST 2VW (06/02/2020 11:16 AM CDT) Anatomical Region Laterality Modality Chest Radiographic Claribel ging 06/02/2020 11:1 7 AM CDT Impressions 06/02/2020 1:04 PM CDT FINDINGS/IMPRESSION: There is no focal consolidation, pleural effusion, or pneumothorax. The cardiomediastinal silhouette is normal. The visible bony thorax is intact. Dictated by Dayana Alonso MD (chairman president and chief executive officer). I, Dr. MATTIE HERNANDEZ have personally reviewed and interpreted this examination/study. This report was electronically signed by MATTIE HERNANDEZ ??on 06/02/2020 1:04 PM . Narrative 06/02/2020 1:04 PM CDT EXAMINATION: XR CHEST 2VW HISTORY: Z01.818: Pre-op testing COMPARISON: No prior study is available for comparison. Procedure Note Mattie Hernandez MD - 06/02/2020 EXAMINATION: XR CHEST 2VW HISTORY: Z01.818: Pre-op testing COMPARISON: No prior study is available for comparison. FINDINGS/IMPRESSION: There is no focal consolidation, pleural effusion, or pneumothorax. The cardiomediastinal silhouette is normal. The visible bony thorax isintact. Dictated by Dayana Alonso MD (chairman president and chief executive officer). I, Dr. MATTIE HERNANDEZ have personally reviewed and interpreted this examination/study. This report was electronically signed by MATTIE HERNANDEZ on 06/02/20201:04 PM . Zena Russo MD DIAGNOSTIC IMAGING O RDERABLES * IR CLARIBEL LUMBAR DIRECT APPROACH (05/12/2020 3:03 PM CDT) Anatomical Region Laterality Modality Spine X-Ray Angiograph y 05/15/2020 6:36 PM CDT Impressions 05/15/2020 7:49 PM CDT Impression: L5 interlaminar epidural steroid injection under fluoroscopic guidance. Dictated by Faizan Khalil MD (Vascular and Interventional Radiology) This report was approved ??by Faizan Khalil ?? on 05/15/2020 6:40 PM . I, Dr. PIERRE JAMA have personally reviewed and interpreted this examination/study. This report was electronically signed by PIERRE JAMA ??on 05/15/2020 7:49 PM . Narrative 05/15/2020 7:49 PM CDT History: 34 year oldfemalewith ahistory of a large L4-5 disc herniation s/p discectomy and a L5-S1 right disc bulge with lateral recess stenosis s/p discectomywith chronic back pain and lumbar radiculopathy presenting for bilaterallower lumbar epiduralinjection. Operators: 1.Dr. Jama, Attending Physician 2.Dr. Khalil, Resident Physician Anesthesia: Local with 5 mL of 1% lidocaine. Procedure: Fluoroscopy-guided lower lumbar interlaminar epidural steroid injection. Fluoroscopic time: 4.1 minutes ?Contrast: 8 mL of Isovue 300 Procedure details: The procedure, risks, and possible complications were explained to the patient in detail, and informed consent was obtained. The patient was placed prone on the procedure table. The lower back was prepped and draped in the usual sterile manner. Pre-procedure fluoroscopy was done in the region of interest, and the needle entry site was marked on the lower back. After injection of 1% lidocaine for local anesthesia, a 22-gauge 10 cm needle was advanced into the epidural space at the level of L5. Contrast was injected and epidurography was performed, which confirmed the tip of the needle in the epidural space. Subsequently, a mixture of 3 mL betamethasone (6 mg/mL) and 3 mL 0.5% bupivacaine was injected. The needle was removed, and sterile dressing was applied. The patient tolerated the procedure well and was transferred to the holding area in stable condition. There were no immediate complications associated with the procedure. The patient's pain level before the procedure was 7/10. The patient's pain level after the procedure was 3/10. Procedure Note Pierre Jama MD - 05/15/2020 History: 34 year oldfemalewith ahistory of a large L4-5 disc herniation s/p discectomy and a L5-S1 right disc bulge with lateral recess stenosis s/p discectomywith chronic back pain and lumbar radiculopathy presenting for bilaterallower lumbar epiduralinjection. Operators: 1.Dr. Jama, Attending Physician 2.Dr. Khalil, Resident Physician Anesthesia: Local with 5 mL of 1% lidocaine. Procedure: Fluoroscopy-guided lower lumbar interlaminar epidural steroid injection. Fluoroscopic time: 4.1 minutes Contrast: 8 mL of Isovue 300 Procedure details: The procedure, risks, and possible complications were explained to the patient in detail, and informed consent was obtained. The patient was placed prone on the procedure table. The lower back was prepped anddraped in the usual sterile manner. Pre-procedure fluoroscopy was done in the region of interest, and the needle entry site was marked on the lower back. After injection of 1% lidocaine for local anesthesia, a 22-gauge 10 cm needle was advancedinto the epidural space at the level of L5. Contrast was injected and epidurography was performed, which confirmed the tip of the needle inthe epidural space. Subsequently, a mixture of 3 mL betamethasone (6 mg/mL) and 3 mL 0.5% bupivacaine was injected. The needle was removed, and sterile dressing was applied. The patient tolerated the procedure well and was transferred to the holding area in stable condition. There were no immediate complications associated with the procedure. The patient's pain level before the procedure was 7/10. The patient'chiki level after the procedure was 3/10. Impression: L5 interlaminar epidural steroid injection underfluoroscopic guidance. Dictated by Faizan Khalil MD (Vascular and Interventional Radiology) This report was approved by Faizan Khalil on 05/15/2020 6:40 PM . I, Dr. PIERRE JAMA have personally reviewed and interpreted this examination/study. This report was electronically signed by PIERRE JAMA on 05/15/2020 7:49 PM . Zena Russo MD IR ORDERABLES * ETT Placement (05/26/2019 10:16 AM CDT) Narrative Leigha Sparks MD - 05/26/2019 10:16 AM CDT Gail Ruiz APRN-CRNA ? 05/26/2019 10:17 AM Endotracheal Tube Placement: ? Patient Location: OR. Intubation Event Date/Time: ??05/26/2019 9:31 AM Procedure: intubation (51154). Procedure Section: ?? Sedation: under general anesthesia. Indications for Airway Management: ??anesthesia Induction: standard IV Patient Position: ??supine Mask Ventilation: easy with oral airway. Blade Type: Sal Blade Size: 3 Laryngoscopy View: grade 1 (full cords) Intubation Adjuncts: stylet Tube: endotracheal tube Placement: oral Tube type: cuff - inflated Tube Size (MM): 7 Depth of Insertion (CM): 22 Measured From: lips Cuff volume (mL): ??5 Cuff Inflated With: air Number of Attempts: 1. Ventilation between attempts: No. Placement Verified By: direct visualization, bilateral breath sounds, chest auscultation and CO2 monitor Tube secured with: ??adhesive tape. Difficult Airway? ??No. Procedure Start Time: 05/26/2019 9:31 AM. Staff Section ?? Anesthesia Provider: Gail Ruiz APRN-CRNA, Performed the procedure Leigha Sparks MD GENERAL ANESTHESIA O RDERABLES * HCG URINE QUALITATIVE - POINT OF CARE (05/26/2019 7:45 AM CDT) HCG Qual Urine Negative Negative [facility] P OCT TESTING QC Verified Yes Yes [facility] POCT TESTING Urine URINE / Unknown 05/26/2019 7 :45 AM CDT Emili Doe [place] FORESTER AIDE-GAME DESIGN INSTRUCTOR LAB - POINT OF C ARE ORDERABLES Performing Organization Address [facility] de Phone Number [facility] POCT TESTING [address] [phone] * PTT (05/12/2019 11:37 AM CDT) PTT 29 22 - 34 sec [facility] Comment: This test has not been validated for monitoring unfractionated heparin therapy. For testing that is validated for this type of therapy, please refer to the Heparin Anti-Xa assay (test code 10986). For additional information, please refer to http://PowerVision.[employer]Station/faq/JCU120 (This link is being provided for informational/educational purposes only.) Test Performed at: [facility] [address] [place], [place] ??[id number] DARRION CHEW DO,MPH 05/12/2019 11:3 7 AM CDT 05/12/2019 11:38 AM CDT Zena Russo MD LAB - COAGULATION OR DERABLES Performing Organization Address [facility] Co de Phone Number [facility] [phone] [place] [address] * PT-INR (05/12/2019 11:37 AM CDT) INR 1.0 [facility] Comment: Reference Range ? 0.9-1.1 Moderate-intensity Warfarin Therapy 2.0-3.0 Higher-intensity Warfarin Therapy ?? 3.0-4.0 PT 10.0 9.0 - 11.5 sec [facility] Comment: For more information on this test, go to: http://PowerVision.[employer]/faq/JHI625 Test Performed at: [facility] [address] [place], [place] ??[id number] DARRION CHEW DO,MPH 05/12/2019 11:3 7 AM CDT 05/12/2019 11:38 AM CDT Zena Russo MD LAB - COAGULATION OR DERABLES [facility] [address] [place] [address] * IMAGING/RADIOLOGY/XRAY RESULTS ORDER (04/06/2019 7:59 AM CDT) Only the most recent of2 resultswithin the time period is included. Anatomical Region Laterality Modality Other Narrative 04/06/2019 7:59 AM CDT Ordered by an unspecified provider. Scanned Document IMAGING * SKIN TEST PPD - POINT OF CARE (07/08/2018) PPD neg Other MISCELLANEOUS SAMPLE S / Unknown 07/08/2018 Latonia Montero FORESTER AIDE-GAME DESIGN INSTRUCTOR LAB - POINT OF CA RE ORDERABLES * IR NERVE BLOCK L OR S UNILAT (06/04/2018 1:32 PM CDT) Anatomical Region Laterality Modality X-Ray Angiograph y 06/04/2018 5:55 PM CDT Impressions 06/04/2018 5:59 PM CDT Impression: Bilateral L4-L5 transforaminal epidural steroid injection under fluoroscopic guidance. I Dr. Patel performed/was present throughout the procedure. This report was electronically signed by JHON GUARDADO M.D. ??on 06/04/2018 5:59 PM . Narrative 06/04/2018 5:59 PM CDT History: Patient is a 32 y.o.right handed femalepresenting to clinic with history of a right MIS L4-5 discectomy in April 2017. Her pain and numbness have improved since surgery but she notes persistent right foot weakness. She has also noticed a size difference between her calves. She is able to walk but has a hard time standing on her toes on the right leg. Referred interventional radiology for selective nerve root block, bilateral L4-L5 Operators: 1.Dr. Patel, Attending Physician Anesthesia: Local with 5 mL of 1% lidocaine. Procedure: Fluoroscopy-guided bilateral L4-L5 transforaminal epidural steroid injection. Fluoroscopic time: 1.7 minutes ?Contrast: 3 mL of Isovue-300 Procedure details: The procedure, risks, and possible complications were explained to the patient in detail, and informed consent was obtained. The patient was placed prone on the procedure table. The lower back was prepped and draped in the usual sterile manner. Left L4 selective nerve root block Pre-procedure fluoroscopy was done in the region of interest, and the needle entry site was marked on the lower back. After injection of 1% lidocaine for local anesthesia, a 22-gauge 3.5-inch spinal needle was advanced below the left L4 pedicle. Contrast was injected and confirmed proper positioning as it was seen outlining the nerve root. Subsequently, a mixture of 1.5 mL betamethasone (6 mg/mL) and 1.5 mL 0.5% bupivacaine was injected. The needle was removed, and sterile dressing was applied. Right L4 selective nerve root block: Pre-procedure fluoroscopy was done in the region of interest, and the needle entry site was marked on the lower back. After injection of 1% lidocaine for local anesthesia, a 22-gauge 3.5-inch spinal needle was advanced below the right L4 pedicle. Contrast was injected and confirmed proper positioning as it was seen outlining the nerve root. Subsequently, a mixture of 1.5 mL betamethasone (6 mg/mL) and 1.5 mL 0.5% bupivacaine was injected. The needle was removed, and sterile dressing was applied. The patient tolerated the procedure well and was transferred to the holding area in stable condition. There were no immediate complications associated with the procedure. The patient's pain level before the procedure was difficult to assess as patient complains more of right-sided leg weakness as opposed to pain. The patient's pain level after the procedure was unchanged. Procedure Note Jhon Guardado MD - 06/04/2018 History: Patient is a 32 y.o.right handed femalepresenting to clinic with history of a right MIS L4-5 discectomy in April 2017.Her pain and numbness have improved since surgery but she notes persistent right foot weakness. She has also noticed a size difference between her calves. She is able to walk but has a hard time standing on her toes on the right leg. Referred interventional radiology for selective nerveroot block, bilateral L4-L5 Operators: 1.Dr. Patel, Attending Physician Anesthesia: Local with 5 mL of 1% lidocaine. Procedure: Fluoroscopy-guided bilateral L4-L5 transforaminal epidural steroid injection. Fluoroscopic time: 1.7 minutes Contrast: 3 mL of Isovue-300 Procedure details: The procedure, risks, and possible complications were explained to the patient in detail, and informed consent was obtained. The patient was placed prone on the procedure table. The lower back was prepped anddraped in the usual sterile manner. Left L4 selective nerve root block Pre-procedure fluoroscopy was done in the region of interest, and the needle entry site was marked on the lower back. After injection of 1% lidocaine for local anesthesia, a 22-gauge 3.5-inch spinal needle was advanced below the left L4 pedicle. Contrast was injected and confirmed proper positioning as it was seen outlining the nerve root.Subsequently, a mixture of 1.5 mL betamethasone (6 mg/mL) and 1.5 mL 0.5% bupivacaine was injected. The needle was removed, and sterile dressing was applied. Right L4 selective nerve root block: Pre-procedure fluoroscopy was done in the region of interest, and the needle entry site was marked on the lower back. After injection of 1% lidocaine for local anesthesia, a 22-gauge 3.5-inch spinal needle was advanced below the right L4 pedicle. Contrast was injected and confirmed proper positioning as it was seen outlining the nerve root.Subsequently, a mixture of 1.5 mL betamethasone (6 mg/mL) and 1.5 mL 0.5% bupivacaine was injected. The needle was removed, and sterile dressing was applied. The patient tolerated the procedure well and was transferred to the holding area in stable condition. There were no immediate complications associated with the procedure. The patient's pain level before the procedure was difficult to assess as patient complains more of right-sided leg weakness as opposed to pain.The patient's pain level after the procedure was unchanged. Impression: Bilateral L4-L5 transforaminal epidural steroid injection under fluoroscopic guidance. I Dr. Patel performed/was present throughout the procedure. This report was electronically signed by JHNO GUARDADO M.D. on 06/04/2018 5:59 PM . Zena Russo MD IR ORDERABLES * XR LUMBAR SPINE 4VW OR MORE (03/03/2017 9:56 AM CDT) Anatomical Region Laterality Modality Spine Other Impressions 03/03/2017 4:59 PM CDT IMPRESSION: No acute fracture or subluxation identified. 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 Dictated by Felix Gonzalez MD (chairman president and chief executive officer). This report was approved ??by Felix Gonzalez M.D. ?? on 03/03/2017 2:38 PM . I, Dr. DIAZ MOSQUERA M.D. have personally reviewed and interpreted this examination/study. This report was electronically signed by DIAZ MOSQUERA M.D. ??on 03/03/2017 4:59 PM . Narrative 03/03/2017 4:59 PM CDT EXAMINATION: XR SPINE LUMBAR 4 VW MIN HISTORY: back pain COMPARISON: No prior study is available for comparison. FINDINGS: 5 nonrib-bearing lumbar vertebral bodies are seen. The vertebral bodies are normally aligned. The alignment is unchanged with flexion and extension. There is no fracture or compression deformity. There is decreased intervertebral disc space at L4-5. Mild degenerative facet osteoarthritis is seen in the lower lumbar spine. The sacroiliac joints are normal. An intrauterine device is seen. Right upper quadrant surgical clips are present. Procedure Note Diaz Mosquera MD - 11/14/2017 EXAMINATION: XR SPINE LUMBAR 4 VW MIN HISTORY: back pain COMPARISON: No prior study is available for comparison. FINDINGS: 5 nonrib-bearing lumbar vertebral bodies are seen. The vertebral bodiesare normally aligned. The alignment is unchanged with flexion andextension. There is no fracture or compression deformity. There isdecreased intervertebral disc space at L4-5. Mild degenerative facet osteoarthritis is seen in the lower lumbar spine. Thesacroiliac joints are normal. An intrauterine device is seen. Right upperquadrant surgical clips are present. IMPRESSION IMPRESSION: No acute fracture or subluxation identified. 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 Dictated by Felix Gonzalez MD (chairman president and chief executive officer). This report was approved by Felix Gonzalez M.D. on 03/03/2017 2:38 PM . I, Dr. DIAZ MOSQUERA M.D. have personally reviewed and interpreted thisexamination/study. This report was electronically signed by DIAZ MOSQUERA M.D. on 03/03/20174:59 PM . Alanis Herrera PA-C DIAGNOSTIC CLARIBEL GING ORDERABLES * (ABNORMAL) CULTURE URINE (05/17/2014 7:41 PM CDT) Only the most recent of2 resultswithin the time period is included. Culture Urine ENTEROCOC CUS(A) [facility] Comment:100,000 CFU/ML Enter ococcus Urine specimen (specimen) URINE SPECIMEN OBTAINED BY CLEAN CATCH PROCEDURE / Unknown 05/17/2014 7:41 PM CDT 05/18/2014 9:19 PM CDT [facility] - 05/20/2014 9:00 AM CDT OzSpecimen#[id number] Oz Loc/Rm/Bed: EXPCARE H// CLN CATCH U Organism Antibiotic Method Susceptibility Enterococcus Ampicillin SUSCEPTIBILITY <=2: Sensitive Enterococcus Doxycycline SUSCEPTIBILITY >=16: Resistant Enterococcus Linezolid SUSCEPTIBILITY 2: Sensitive Enterococcus Nitrofurantoin SUSCEPTIBILITY <=16: Sensitive Enterococcus Vancomycin SUSCEPTIBILITY 1: Sensitive Historical Provider MD LAB - MICROBIOLOG Y ORDERABLES Performing Organization Address City/State/[facility] Co de Phone Number [address] [phone] * CULTURE AEROBIC + GRAM STAIN (05/07/2014 6:30 PM CDT) Culture Aerobic Urogenital /Skin Wendy [facility] Culture Aerobic After 48 hours. [facility] Vagina 05/07/2014 6:30 PM CDT 05/07/2014 8:35 PM CDT [facility] - 05/11/2014 12:49 PM CDT AndersonSpecimen#[id number] Oz Loc/Rm/Bed: ED// Historical Provider LAB - MICROBIOLOG Y ORDERABLES Performing Organization Address [facility]/ZIP Co de Phone Number [facility] [address] [phone] * CULTURE AEROBIC (05/07/2014 6:30 PM CDT) Vagina 05/07/2014 6:30 PM CDT Narrative [facility] - 05/11/2014 12:49 PM CDT AndersonSpecimen#[id number] [place] Loc/Rm/Bed: ED// The following orders were created for panel order CULTURE, AEROBIC & GRAM STAIN. Procedure ? Abnormality ? Status ? --------- ? ------ ? CULTURE, AEROBIC[[id number]] ?Final result ? STAIN, GRAM (PERFORM)[[id number]] ? Final result ? Please view results for these tests on the individual orders. Historical Provider LAB - MICROBIOLOG Y ORDERABLES Performing Organization Address [facility]/ZIP Co de Phone Number [facility] [address] * GRAM STAIN SMEAR (05/07/2014 6:30 PM CDT) Gram Stain Rare Polymorphonuclear Cells [facility] Gram Stain Few Epithelial Cells [facility] Gram Stain Many Gram Negative bacilli [facility] Vagina 05/07/2014 6:30 PM CDT 05/07/2014 8:35 PM CDT Narrative [facility] - 05/08/2014 2:02 PM CDT AndersonSpecimen#[id number] Oz Loc/Rm/Bed: ED// Gram Stains are routinely screened for the presence of Polymorphonuclear Cells. Historical Provider LAB - MICROBIOLOG Y ORDERABLES [facility] [address] [phone] Care Teams Social Worker Psychiatric Relationship Specialty Start Date End Date Lavelle Ambriz[address] [place] [address] PCP - General 08/09/24
--- OUTSIDE RECORDS SUMMARY | 2024-09-09 10:52 | XMS_ITS | Referral Summary ---
Author Organization [facility] Address [address] [place] [address] Care Team Providers Care Divine Healer Name Role Phone Pb [place] Primary Care Provider [phone] Source Comments [facility],non-owned Affiliates and Associated Physician Practices is amultiple site organization consisting of ambulatory clinics and hospital sitesin [place], [place], [place] and [place]. This disclosure is being madepursuant to the Care Everywhere program and may not contain all information available regarding this patient. Last updated 18.[facility] Allergies No known active allergies Medications * [...] Mass Index 35.43 02/14/2021 2:54 PM CDT Functional Status Functional Status Response Date of Assess ment Is person deaf or have serious hearing difficult y? No 06/07/2020 Is person blind or have serious difficulty seein g? No 06/07/2020 Does person have serious dif ficulty walking/climbing stairs? No 06/07/2020 Does person have difficulty dressing/bathing? No 06/07/2020 Does person have difficulty doing errands alone? No 06/07/2020 Cognitive Status Response Date of Assessm ent Does person have difficulty concentrating/remembering/making decisions? No 06/07/2020 Plan of Treatment Upcoming Encounters Date Type Department Care Team (Late st Contact Info) Description 09/16/2024 10:00 AM VAT SKIMMER Office Visit [facility] - Neurosurgery [address] [facility], [facility] [place] [id number] Zena Russo MD [address] [place] [address] Medical Devices Implanted Type Area Associate Justice Device Identifier Shelf Expiration Date Model / Serial / Lot [id number] Artificial Cervical Disc, 6 Medium Long Implanted:Qty: 1 on 06/07/2020 by Zena Russo MD at [facility] Spine Cervical [employer] 03/10/2024 [id number] / [id number] / [id number] Administered Medications Care Teams Divine Healer Relationship Specialty Start Date End Date Corbin Ambriz [address] [place] [address] PCP - General 08/09/24
--- OUTSIDE RECORDS SUMMARY | 2024-09-09 10:52 | XMS_ITS | Clinical Summary ---
Author Organization [facility] Address [address] [place] [address]. [place], [place] [address] [place] [id number] Care Team Providers Care Ribbon Lapper Tender Name Role Phone Corbin Ambriz MD Primary Care Provider [phone] Allergies No known active allergies Medications Multiple Vitamin (MULTIVITAMIN ADULT OR) Take 1 tablet by mouth daily. Active hydrOXYzine (ATARAX) 25 MG tablet Take 1 tablet (25 mg total) by mouth 3 (three) times daily as needed for Anxiety. 15 tablet 06/15/2024 Active gabapentin (NEURONTIN) 300 MG capsuleIndicatio ns:Paresthesia 1 tab QD x 1 day, then 300mg BID x 1 day then 300mg po TID. 90 capsule 08/08/2024 Active Active Problems Problem Noted Date Diagnosed Date Hypertension without cardiac signs or symptoms 1 Encounters Date Type Department Care Team Description 08/08/2024 1:48 PM FOREIGN EXCHANGE STUDENT COORDINATOR - 08/08/2024 4:13 PM [facility] Emergency [facility] [place] [address] Johnathon Avelar PA Numbness Discharge Disposition: Home or Self Care (Routine Discharge) 08/08/2024 Travel 08/06/2024 5:45 PM FOREIGN EXCHANGE STUDENT COORDINATOR - 08/06/2024 9:34 PM [facility] Emergency [facility] Emergency Room [place], [place] [address] Elias Hdz MD Medical Screening Discharge Disposition: Home or Self Care (Routine Discharge) 08/06/2024 Travel 06/15/2024 7:07 AM CDT - 06/15/2024 9:53 AM CDT Emergency [facility] [place] [address] Renaldo Sanchez MD Dizziness Discharge Disposition: Home or Self Care (Routine Discharge) 06/15/2024 Travel 06/13/2024 12:32 PM CDT - 06/14/2024 11:19 AM CDT Emergency [facility] [place] [address] Stacy Evangelista, Savannah Deras, Near Syncope Discharge Disposition: Home or Self Care (Routine Discharge) 06/13/2024 Travel from Last 3 Months Social History Tobacco Use Types Packs/Day Years Used Date Smoking Tobacco: Never Smokeless Tobacco: Never Tobacco Cessation:Counseling Given: Not Answered Alcohol Use Standard Drinks/Week Comments Not Currently 0 (1 standard drink = 0.6 oz pur e alcohol) Comments No Sex and Gender Information Value Date Recorded Sex Assigned at Not on file Legal Sex Female 7:47 PM CDT Gender Identity Not on file Sexual Orientation Not on file Last Filed Vital Signs Vital Sign Reading Time Taken Comments Blood Pressure 149/88 08/08/2024 4:10 PM FOREIGN EXCHANGE STUDENT COORDINATOR Pulse 89 08/08/2024 4:10 PM FOREIGN EXCHANGE STUDENT COORDINATOR Temperature 36.4 ??C (97.6 ??F) 08/08/2024 1:34 PM CS T Respiratory Rate 16 08/08/2024 4:10 PM FOREIGN EXCHANGE STUDENT COORDINATOR Oxygen Saturation 99% 08/08/2024 4:10 PM FOREIGN EXCHANGE STUDENT COORDINATOR Inhaled Oxygen Concentration - - Weight 98.9 kg (218 lb) 08/08/2024 1:34 PM FOREIGN EXCHANGE STUDENT COORDINATOR Height 172.7 cm (5' 8 ) 08/08/2024 1:34 PM FOREIGN EXCHANGE STUDENT COORDINATOR Body Mass Index 33.15 08/08/2024 1:34 PM FOREIGN EXCHANGE STUDENT COORDINATOR Plan of Treatment Health Maintenance Due Date Last Done Comments Cervical Cancer Screening Pa p Smear (Age 30 to 64) Every 3 Years 1986 Annual Physical 1989 Hepatitis C 2004 Hepatitis B Vaccines (2 of 3 - 19+ 3-dose series) 04/13/2014 03/16/2014 Cervical Cancer Screening Pa p with HPV Testing (Age 30 to 64) Every 5 Years 2016 Cervical Cancer Screening with HPV 2016 COVID-19 Vaccine (2023-2 5 season) 2024 Influenza Adult (#1) 2024 DTaP, Tdap and Td Vaccines ( 2 - Td or Tdap) 12/18/2025 12/19/2015 HPV Vaccines Aged Out No longer eligi ble based on patient's age to complete this topic Meningococcal Vaccine Aged Out No kesha thomas eligible based on patient's age to complete this topic Pneumococcal Vaccine: Pediat rics (0 to 5 Years) and At-Risk Patients (6 to 64 Years) Aged Out No longer eligi ble based on patient's age to complete this topic RSV Immunizations Under 20 Months Aged Out No longer eligible based on patient's age to complete this topic Procedures Procedure Name Priority Date/Time Associated Diagnosis Comments CT HEAD WO CON STAT 08/08/2024 3:09 PM FOREIGN EXCHANGE STUDENT COORDINATOR POCT URINE (BACK OFFICE) STAT 08/08/2024 1:57 PM FOREIGN EXCHANGE STUDENT COORDINATOR D-DIMER, QUANTITATIVE STAT 08/06/2024 8:05 PM FOREIGN EXCHANGE STUDENT COORDINATOR ECG 12-LEAD Routine 08/06/2024 5:59 PM FOREIGN EXCHANGE STUDENT COORDINATOR TROPONIN, QUANT STAT 08/06/2024 5:49 PM FOREIGN EXCHANGE STUDENT COORDINATOR TSH W/REFLEX STAT 08/06/2024 5:49 PM FOREIGN EXCHANGE STUDENT COORDINATOR MAGNESIUM STAT 08/06/2024 5:49 PM FOREIGN EXCHANGE STUDENT COORDINATOR COMPREHENSIVE METABOLIC PANEL STAT 08/06/2024 5:49 PM FOREIGN EXCHANGE STUDENT COORDINATOR CBC W/DIFF AUTOMATED STAT 08/06/2024 5:49 PM FOREIGN EXCHANGE STUDENT COORDINATOR ELECTROCARDIOGRAM REPORT Routine 024 9:16 AM CDT XR CHEST PORTABLE STAT 06/15/2024 8:1 4 AM CDT BLOOD GAS, ARTERIAL LAB STAT 06/15/20 8:00 AM CDT CHORIONIC GONADOTROPIN HCG QL STAT 06/15/2024 7:50 AM CDT COMPREHENSIVE METABOLIC PANEL STAT 06/15/2024 7:50 AM CDT CBC W/DIFF AUTOMATED STAT 06/15/2024 7:50 AM CDT ECG 12-LEAD Routine 06/15/2024 7:41 AM CDT XR CHEST PORTABLE STAT 06/13/2024 2:1 8 PM CDT ECG 12-LEAD Routine 06/13/2024 1:[address] HEAD WO CON STAT 06/13/2024 1:35 PM CDT POCT URINE (BACK OFFICE) STAT 06/13/2024 1:09 PM CDT HC URINALYSIS AUTO W/O MICRO STAT 06/13/2024 1:05 PM CDT TROPONIN, QUANT STAT 06/13/2024 1:05 PM CDT COMPREHENSIVE METABOLIC PANEL STAT 06/13/2024 1:05 PM CDT CBC W/DIFF AUTOMATED STAT 06/13/2024 1:05 PM CDT CRITICAL CARE Routine 06/13/2024 1:01 PM CDT from Last 3 Months Results * CT HEAD WO CON (08/08/2024 3:09 PM FOREIGN EXCHANGE STUDENT COORDINATOR) Only the most recent of2 resultswithin the time period is included. Anatomical Region Laterality Modality Head Computed Tomogra phy 08/08/2024 3:15 PM FOREIGN EXCHANGE STUDENT COORDINATOR Impressions 08/08/2024 3:19 PM FOREIGN EXCHANGE STUDENT COORDINATOR IMPRESSION: No evidence is seen to suggest acute intracranial hemorrhage, mass effect, or midline shift. Referred By: ?? Interpreted By: Cory Stahl DO, 08/08/2024 3:15 PM Narrative 08/08/2024 3:19 PM FOREIGN EXCHANGE STUDENT COORDINATOR [address] [address] EXAMINATION: CT HEAD WO CON EXAM DATE: 08/08/2024 2:50 PM CLINICAL HISTORY: Anxiety. ??Numbness/tingling in the arms, legs, and forehead. COMPARISON: CT head 06/13/2024. TECHNIQUE: Axial unenhanced CT of the head was performed. ??Coronal and sagittal reformatted images were obtained and reviewed. ??A radiation dose lowering technique was used for this procedure, which may include, but is not limited to, dose reduction technique, automated exposure control, the use of iterative reconstruction, ALARA (As Low As Reasonably Achievable) techniques, and Image Gently techniques. FINDINGS: No evidence is seen to suggest discrete extra-axial fluid collection. Basal cisterns are grossly patent. No evidence is seen to suggest acute intracranial hemorrhage. There is no mass effect or midline shift. The ventricles are appropriate in size and configuration. ??There is no depressed calvarial fracture. ??The included paranasal sinuses and mastoid air cells are clear. ??The orbits demonstrate no gross abnormality. Procedure Note Cory Stahl DO - 08/08/[address] [address] EXAMINATION: CT HEAD WO CON EXAM DATE: 08/08/2024 2:50 PM CLINICAL HISTORY: Anxiety. Numbness/tingling in the arms, legs, andforehead. COMPARISON: CT head 06/13/2024. TECHNIQUE: Axial unenhanced CT of the head was performed. Coronal andsagittal reformatted images were obtained and reviewed. A radiation doselowering technique was used for this procedure, which may include, but isnot limited to, dose reduction technique, automated exposure control, theuse of iterative reconstruction, ALARA (As Low As Reasonably Achievable)techniques, and Image Gently techniques. FINDINGS: No evidence is seen to suggest discrete extra-axial fluid collection.Basal cisterns are grossly patent. No evidence is seen to suggest acuteintracranial hemorrhage. There is no mass effect or midline shift. Theventricles are appropriate in size and configuration. There is nodepressed calvarial fracture. The included paranasal sinuses and mastoidair cells are clear. The orbits demonstrate no gross abnormality. IMPRESSION: No evidence is seen to suggest acute intracranial hemorrhage, mass effect,or midline shift. Referred By: Interpreted By: Cory Stahl DO, 08/08/2024 3:[address] Final Resu lt * POCT urine (08/08/2024 1:57 PM FOREIGN EXCHANGE STUDENT COORDINATOR) Only the most recent of2 resultswithin the time period is included. URINE HCG TEST NEGATIVE Internal Control: VALID us Johnathon MARK POINT OF CARE TEST ORDERAB LES Final Result * D-DIMER, QUANTITATIVE (08/06/2024 8:05 PM FOREIGN EXCHANGE STUDENT COORDINATOR) Pathologist [facility] D-DIMER 229 0 - 500 ng{FEU}/mL 08/06/2024 8:23 PM FOREIGN EXCHANGE STUDENT COORDINATOR [facility] Comment: D-Dimer values less than or equal to 500 ng/mL FEU have a negative predictive value of >95% for exclusion of deep vein thrombosis and pulmonary embolism. In patients over 50 (who tend to have higher normal baseline D-Dimer values), recent studies suggest age-adjusted D-Dimer cutoff values (calculated as: age [years] x 10 ng/mL) result in equivalent outcomes and no additional false negative findings. 08/06/2024 8:05 PM FOREIGN EXCHANGE STUDENT COORDINATOR us Elias Hdz MD LABORATORY Final R esult [facility] [address] [place] [address], * ECG 12 lead (08/06/2024 5:59 PM FOREIGN EXCHANGE STUDENT COORDINATOR) Only the most recent of3 resultswithin the time period is included. 08/06/2024 5:59 PM FOREIGN EXCHANGE STUDENT COORDINATOR Narrative [facility] RAD - 08/08/2024 11:50 AM FOREIGN EXCHANGE STUDENT COORDINATOR ?[facility] ? [address] Lizbeth Soto MD ? Test Date: ?2024-08-06 Pat Name: ? SYLVIA RYDER ?Department: ?? 41 ? Room: ? Gender: ? Female ? 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 [id number] : ?1985 ? Requested By: ODETTE ACUNA Order Number: [id number] ? Myah SHAHID: ?? Connie Hardin ? Measurements Intervals ?[place] ? Rate: ? 80 ? P: ?44 FL: ? 201 ?QRS: ?-20 QRSD: ? 96 ? T: ?41 QT: ? 396 ? QTc: ?457 ? Interpretive Statements SINUS RHYTHM POSSIBLE LEFT VENTRICULAR HYPERTROPHY [VOLTAGE CRITERIA PLUS LAE OR QRS WIDENING] Compared to ECG 06/15/2024 07:41:14 No significant changes Other ischemic changes, not STEMI Preliminary EKG Interpretation by Elias Hdz M.D. IGN EXCHANGE STUDENT COORDINATOR Procedure Note Connie Hardin MD - 08/08/2024 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 IGN EXCHANGE STUDENT COORDINATOR Odette MARK ECG ORDERABLES Final Result Performing Organization Address [facility]/ZIP Co de Phone Number [facility] ([facility]) RAD * TSH W/REFLEX (08/06/2024 5:49 PM FOREIGN EXCHANGE STUDENT COORDINATOR) TSH 1.750 0.358 - 3.74 uIU/ML 08/06/2024 6:32 PM FOREIGN EXCHANGE STUDENT COORDINATOR [facility] Comment: HIGH DOSES OF BIOTIN MAY INTERFERE WITH THIS TEST RESULT. CORRELATION TO CLINICAL HISTORY AND PRESENTATION RECOMMENDED. FREE T4 NOT INDICATED 08/06/2024 5:49 PM FOREIGN EXCHANGE STUDENT COORDINATOR Odette MARK LABORATORY Final Result Performing Organization Address [facility] Co de Phone Number [facility] [address] [place] [address], [place] [phone] * (ABNORMAL) COMPREHENSIVE METABOLIC PANEL (08/06/2024 5:49 PM FOREIGN EXCHANGE STUDENT COORDINATOR) Only the most recent of3 resultswithin the time period is included. GLUCOSE 92 70 - 99 MG/DL 08/06/2024 6:32 PM FOREIGN EXCHANGE STUDENT COORDINATOR [facility] BUN 12 7 - 18 MG/DL 08/06/2024 6:32 PM FOREIGN EXCHANGE STUDENT COORDINATOR [facility] CREATININE S/P/B 1.00 0.55 - 1.02 MG/DL 08/06/2024 6:32 PM FOREIGN EXCHANGE STUDENT COORDINATOR [facility] SODIUM S/P/B 136 136 - 145 MMOL/L 08/06/2024 6:32 PM [facility] POTASSIUM S/P/B 3.4(L) 3.5 - 5.1 MMOL/L 08/06/2024 6:32 PM [facility] CHLORIDE S/P/B 104 97 - 115 MMOL/L 08/06/2024 6:32 PM [facility] CO2 26.6 21 - 32 MMOL/L 08/06/2024 6:32 PM [facility] CALCIUM S/P/B 9.2 8.5 - 10.1 MG/DL 08/06/2024 6:32 PM [facility] BILIRUBIN TOTAL S/P/B 0.6 0.2 - 1.2 MG/DL 08/06/2024 6:32 PM [facility] Comment: THIS ASSAY IS NOT RECOMMENDED FOR PATIENTS UNDERGOING TREATMENT WITH ELTROMBOPAG DUE TO THE POTENTIAL FOR FALSELY ELEVATED RESULTS. TOTAL PROTEIN S/P/B 8.1 6.4 - 8.2 G/DL 08/06/2024 6:32 PM [facility] ALBUMIN S/P/B 4.0 3.4 - 5.0 G/DL 08/06/2024 6:32 PM [facility] AST 21 15 - 37 U/L 08/06/2024 6:32 PM [facility] ALT 31 14 - 55 U/L 08/06/2024 6:32 PM [facility] ALKALINE PHOSPHATASE S/P/B 89 50 - 136 U/L 08/06/2024 6:32 PM [facility] ANION GAP 5.4 2 - 10 MMOL/L 08/06/2024 6:32 PM [facility] BUN CREATININE RATIO 12.0 6 - 26 08/06/2024 6:32 PM FOREIGN EXCHANGE STUDENT COORDINATOR [facility] A/G RATIO 1.0 1.0 - 2.0 RATIO 08/06/2024 6:32 PM FOREIGN EXCHANGE STUDENT COORDINATOR [facility] GFR ESTIMATE 74(L) >90 ML/MIN/1.7 3 M2 08/06/2024 6:32 PM FOREIGN EXCHANGE STUDENT COORDINATOR [facility] Comment: NOTE: eGFR is not calculated for patients <18 years of age or gender unknown. This is an estimated GFR calculation using the new CKD EPI creatinine equation without race and so does not require a correction factor for race. This estimated GFR should not be used for calculating drug doses. 08/06/2024 5:49 PM FOREIGN EXCHANGE STUDENT COORDINATOR us Odette MARK LABORATORY Final Result [facility] [address] [place] [address], * CBC W/DIFF AUTOMATED (08/06/2024 5:49 PM FOREIGN EXCHANGE STUDENT COORDINATOR) Only the most recent of3 resultswithin the time period is included. WBC 7.60 4.5 - 11.0 x10'3/uL 08/06/2024 5:59 PM FOREIGN EXCHANGE STUDENT COORDINATOR [facility] RBC 4.78 4.20 - 5.40 x10'6/uL 08/06/2024 5:59 PM FOREIGN EXCHANGE STUDENT COORDINATOR [facility] HGB 14.6 12.0 - 16.0 G/DL 08/06/2024 5:59 PM FOREIGN EXCHANGE STUDENT COORDINATOR [facility] HCT 42.5 38.0 - 48.0 % 08/06/2024 5:59 PM FOREIGN EXCHANGE STUDENT COORDINATOR [facility] MCV 88.9 81.0 - 99.0 FL 08/06/2024 5:59 PM [facility] MCH 30.5 27.0 - 31.0 PG 08/06/2024 5:59 PM FOREIGN EXCHANGE STUDENT COORDINATOR [facility] MCHC 34.4 32.0 - 36.0 G/DL 08/06/2024 5:59 PM FOREIGN EXCHANGE STUDENT COORDINATOR [facility] RDW 11.9 11.5 - 14.5 % 08/06/2024 5:59 PM FOREIGN EXCHANGE STUDENT COORDINATOR [facility] PLT 348 130 - 400 x10'3/uL 08/06/2024 5:59 PM FOREIGN EXCHANGE STUDENT COORDINATOR [facility] MPV 10.4 9.3 - 12.2 FL 08/06/2024 5:59 PM [facility] DIFFERENTIAL TYPE AUTOMATED DIFFERENTIAL 08/06/2024 5:59 PM FOREIGN EXCHANGE STUDENT COORDINATOR [facility] NEUTROPHILS % 59.4 % 08/06/2024 5:59 PM FOREIGN EXCHANGE STUDENT COORDINATOR [facility] LYMPHOCYTES % 29.9 % 08/06/2024 5:59 PM FOREIGN EXCHANGE STUDENT COORDINATOR [facility] MONOCYTES % 8.9 % 08/06/2024 5:59 PM FOREIGN EXCHANGE STUDENT COORDINATOR [facility] EOSINOPHILS 0.8 % 08/06/2024 5:59 PM [facility] BASOPHILS 0.7 % 08/06/2024 5:59 PM FOREIGN EXCHANGE STUDENT COORDINATOR [facility] IMMATURE GRANS % 0.3 % 08/06/20 5:59 PM FOREIGN EXCHANGE STUDENT COORDINATOR [facility] ABS. NEUTROPHILS 4.52 1.80 - 7.70 x10'3/uL 08/06/2024 5:59 PM FOREIGN EXCHANGE STUDENT COORDINATOR [facility] ABS. LYMPHOCYTES 2.27 1.00 - 4.80 x10'3/uL 08/06/2024 5:59 PM [facility] ABS. MONOCYTES 0.68 0.24 - 0.86 x10'3/uL 08/06/2024 5:59 PM [facility] ABS. EOSINOPHILS 0.06 0.04 - 0.36 x10'3/uL 08/06/2024 5:59 PM FOREIGN EXCHANGE STUDENT COORDINATOR [facility] ABS. BASOPHILS 0.05 0.01 - 0.08 x10'3/uL 08/06/2024 5:59 PM FOREIGN EXCHANGE STUDENT COORDINATOR [facility] ABS. IMMATURE GRANULOCYTES 0.02 0.00 - 0.49 x10'3/uL 08/06/2024 5:59 PM FOREIGN EXCHANGE STUDENT COORDINATOR [facility] 08/06/2024 5:49 PM FOREIGN EXCHANGE STUDENT COORDINATOR Odette MARK LABORATORY Final Result Performing Organization Address City/[facility]/ZIP Co de Phone Number [facility] [address] [place] [address], [place] [phone] * TROPONIN, QUANT (08/06/2024 5:49 PM FOREIGN EXCHANGE STUDENT COORDINATOR) Only the most recent of2 resultswithin the time period is included. TROPONIN I HIGH SENSITIVITY 4 <54 ng/L 08/06/2024 6:32 PM FOREIGN EXCHANGE STUDENT COORDINATOR [facility] Comment: HIGH DOSES OF BIOTIN, TROPONIN-SPECIFIC AUTOANTIBODIES, AND ANTIBODY THERAPY CONTAINING HAMA MAY INTERFERE WITH THIS TEST RESULT. CORRELATION TO CLINICAL HISTORY AND PRESENTATION RECOMMENDED. 08/06/2024 5:49 PM FOREIGN EXCHANGE STUDENT COORDINATOR Odette MARK LABORATORY Final Result [facility] [address] [place] [address], [place] [phone] * MAGNESIUM (08/06/2024 5:49 PM FOREIGN EXCHANGE STUDENT COORDINATOR) MAGNESIUM 2.3 1.8 - 2.4 MG/DL 08/06/2024 6:32 PM FOREIGN EXCHANGE STUDENT COORDINATOR [facility] 08/06/2024 5:49 PM FOREIGN EXCHANGE STUDENT COORDINATOR Odette MARK LABORATORY Final Result [facility] [address] [place] [address], [place] [phone] * EKG Reading (06/15/2024 9:16 AM CDT) Narrative Renaldo Sanchez MD - 06/15/2024 9:16 AM CDT Renaldo Sanchez MD ? 06/15/2024 ??9:28 AM EKG Reading Date/Time: 06/15/2024 9:16 AM Performed by: Renaldo Sanchez MD Authorized by: Renaldo Sanchez MD ??Interpreted by ED physician Comparison: compared with previous ECG from 06/13/2024 Rhythm: sinus rhythm Rate: normal BPM: 94 Comments: Normal sinus rhythm. ??Heart rate 94. ??Normal axis Norval normal QRS nonspecific ST-T wave change. ??Compared with EKG from 06/13/2024 Rhythm strip are interpreted 741 Normal sinus rhythm. ??Heart rate 94. ??No ectopy Renaldo Sanchez MD [place] [facility] Final Result * XR CHEST PORTABLE (06/15/2024 8:14 AM CDT) Only the most recent of2 resultswithin the time period is included. Anatomical Region Laterality Modality Chest Radiographic Claribel ging 06/15/2024 8:16 AM CDT Impressions 06/15/2024 8:17 AM CDT =====IMPRESSION:===== 1. No radiographic evidence of active disease the chest. Ordered By: RENALDO SANCHEZ Interpreted By: Mohinder Young MD, 06/15/2024 8:16 AM Narrative 06/15/2024 8:17 AM CDT [facility] [place] [address] Examination: Chest x-ray 1 view Exam date/time: 06/15/2024 7:57 AM Reason For Exam: ??parathesis ? Comparison: 06/13/2024 Technique: Upright AP view of the chest demonstrated. Findings: ??The cardiac silhouette, mediastinal contours, and pulmonary vessels appear normal. The lungs are clear. No pneumothorax. No consolidations or effusions are seen. Procedure Note Mohinder Young MD - 06/15/2024 [place] [address] Examination: Chest x-ray 1 view Exam date/time: 06/15/2024 7:57 AM Reason For Exam: parathesis Comparison: 06/13/2024 Technique: Upright AP view of the chest demonstrated. Findings: The cardiac silhouette, mediastinal contours, and pulmonaryvessels appear normal. The lungs are clear. No pneumothorax. Noconsolidations or effusions are seen. =====IMPRESSION:===== 1. No radiographic evidence of active disease the chest. Ordered By: RENALDO SANCHEZ Interpreted By: Mohinder Young MD, 06/15/2024 8:16 AM us Renaldo Sanchez MD GENERAL IMAGING Final Result * (ABNORMAL) ARTERIAL BLOOD GAS (06/15/2024 8:00 AM CDT) PH ARTERIAL 7.46(H) 7.35 - 7.45 06/15/2024 8:16 AM CDT [facility] PCO2 31.0(L) 35.0 - 45.0 MMHG 06/15/2024 8:16 AM CDT [facility] PO2 103.0 83.0 - 108.0 MMHG 06/15/2024 8:16 AM CDT [facility] TOTAL CO2 ARTERIAL 23.0 19.0 - 24.0 MMOL/L 06/15/2024 8:16 AM CDT [facility] BASE DEFICIT 0.9 0.0 - 3.0 MMOL/L 06/15/2024 8:16 AM CDT [facility] O2 SATURATION 98 94.0 - 98.0 % 06/15/2024 8:16 AM CDT [facility] BICARB ARTERIAL 22.0 21.0 - 28.0 MMOL/L 06/15/2024 8:16 AM CDT [facility] ELENI TEST ELENI TEST PERFORMED 06/15/2024 8:12 AM CDT [facility] O2 ADMIN ARTERIAL 21% 06/15/2024 8:12 AM CDT [facility] DRAW SITE ARTERIAL LT RADIAL 06/15/2024 8:12 AM CDT [facility] 06/15/2024 8:00 AM CDT Renaldo Sanchez MD LABORATORY Final Result Performing Organization Address City/[facility]/ZIP Co de Phone Number [facility] [address] [place] [address], [place] [phone] * Qualitative HCG (06/15/2024 7:50 AM CDT) PREG SCREEN-SERUM NEGATIVE 06/15/2024 8:07 AM CDT [facility] 06/15/2024 7:50 AM CDT us Renaldo Sanchez MD LABORATORY Final Result [facility] [address] [place] [address], [place] [phone] * URINALYSIS (06/13/2024 1:05 PM CDT) SPECIMEN TYPE URINE CLEAN CATCH 06/13/2024 1:03 PM CDT [facility] COLOR (U) COLORLESS 06/13/2024 1:56 PM CDT [facility] TRANSPARENCY CLEAR 06/13/2024 1:56 PM CDT [facility] SPECIFIC GRAVITY (U) 1.002 1.001 - 1.030 06/13/2024 1:56 PM CDT [facility] U PH 5.5 5.0 - 9.0 06/13/2024 1:56 PM CDT [facility] LEUKOCYTES (U) NEGATIVE NEGATIVE 06/13/2024 1:56 PM CDT [facility] NITRITES NEGATIVE NEGATIVE 06/13/2024 1:56 PM CDT [facility] PROTEIN RANDOM (U) NEGATIVE <30 MG/DL 06/13/2024 1:56 PM CDT [facility] GLUCOSE (U) NORMAL NORMAL MG/DL 06/13/2024 1:56 PM CDT [facility] KETONES MG/DL (U) NEGATIVE NEGATIVE MG/DL 06/13/2024 1:56 PM CDT [facility] UROBILINOGEN NORMAL NORMAL MG/DL 06/13/2024 1:56 PM CDT [facility] BILIRUBIN (U) NEGATIVE NEGATIVE MG/DL 06/13/2024 1:56 PM CDT [facility] BLOOD (U) NEGATIVE NEGATIVE 06/13/2024 1:56 PM CDT [facility] URINE SPECIMEN OBTAINED BY CLEAN CATCH PROCEDURE / Unknown 06/13/2024 1:05 PM CDT [facility] URINE ORDERABLES Final Resu lt [facility] [address] [place] [address], * Critical Care (06/13/2024 1:01 PM CDT) Narrative José Macario MD - 06/13/2024 1:01 PM CDT [facility] ? 06/13/2024 ??3:57 PM Critical Care Performed by: SOL Shea Authorized by: [facility] Shea ?? Critical care provider statement: ??Critical care time (minutes): ??45 ??Critical care time was exclusive of: ??Separately billable procedures and treating other patients and teaching time ??Critical care was necessary to treat or prevent imminent or life-threatening deterioration of the following conditions: ??Circulatory failure (hypertension requiring IV medicaiton) ??Critical care was time spent personally by me on the following activities: ??Evaluation of patient's response to treatment, examination of patient, obtaining history from patient or surrogate, ordering and performing treatments and interventions, ordering and review of laboratory studies, ordering and review of radiographic studies, pulse oximetry and re-evaluation of patient's condition us Stacy [facility] PROCEDURE/MINOR SURGICAL OR DERABLES Final Result from Last 3 Months Insurance [employer] Advance Directives * Full Code (Latest Code Status on File) Date Activated Date Inactivated Comments 06/13/2024 3:13 PM 06/14/2024 1:19 PM Care Teams Ribbon Lapper Tender Relationship Specialty Start Date End Date Corbin Ambriz MD [address] [place] [id number] PCP - General HOSPITALIST 08/08/24
== END 2024-09-05 19:30 | disposition home or self-care (01) ==
PROVIDERS: Emergency Provider Nurse Practitioner Family
DX: J10.1 Influenza due to other identified influenza virus with other respiratory manifestations (principal); Z20.822 Contact with and (suspected) exposure to COVID-19; I10 Essential (primary) hypertension; M19.90 Unspecified osteoarthritis, unspecified site
CPT/HCPCS: 87426; 87804; 99212; G0463